=== PATIENT | female | born 1980 | race Caucasian/White ===

== ENCOUNTER 2017-07-29 15:17 | Emergency (ER) | payer BC ==
[2017-07-29] MEDS ORDERED: ONDANSETRON 4 MG/2 ML VIAL ONE (17:09)
[2017-07-29] MEDS ORDERED: NA CHLORIDE 0.9% 1,000 ML ONE (17:09)
[2017-07-29] MEDS ORDERED: KETOROLAC 30 MG/ML INJ ONE (17:09)
[2017-07-29 17:14] LABS: Absolute Lymphocytes (CBC) 2.3 K/uL (0.7-4.9); Absolute Monocytes 0.5 K/uL (0.1-1.3); Absolute Neutrophil 4.1 K/uL (1.8-8.0); Basophils % 0.3 % (0-1.3); Eosinophils % 1.2 % (0-4.4); Hematocrit 40.4 % (36.0-45.0); Lymphocytes % 32.7 % (15.3-44.8); MCH 29.8 pg (27.0-35.0); MCV 87.6 fL (80-100); MPV 7.8 fL (7.6-11.3); Monocytes % 7.3 % (3.3-12.3); RBC Red Blood Cell Count 4.61 M/uL (3.86-4.86)
[2017-07-29 17:28] LABS: Bicarbonate 26 mEq/L (21-31); Glucose Level 96 mg/dL (65-120); Lipase 19 U/L (22-51); Potassium 3.6 mEq/L (3.6-5.0); Sodium Level 137 mEq/L (135-145)
[2017-07-29 17:35] LABS: ALT/SGPT 21 IU/L (10-60); AST/SGOT 20 IU/L (10-42); Albumin 4.1 g/dL (3.2-5.5); Alkaline Phosphatase 67 IU/L (42-121); Amylase Level 34 U/L (28-100); BUN Blood Urea Nitrogen 11 mg/dL (6-20); Bilirubin Direct 0.1 mg/dL (0-0.2); Bilirubin Total 0.3 mg/dL (0.3-1.2); Protein, Total 7.3 g/dL (6.0-8.3)
[2017-07-29 17:53] LABS: Urine Blood NEGATIVE (NEG); Urine Glucose NEGATIVE (NEG); Urine Protein NEGATIVE (NEG); Urine Specific Gravity 1.025 (1.005-1.030); Urine pH 5.5 (5.0-7.0)
--- NOTE | 2017-07-29 18:32 | RAD REPORT ---
EXAM DESCRIPTION: CTAbdomen Pelvis W Contrast - 07/29/2017 6:05 pm CLINICAL HISTORY: Abdominal pain. COMPARISON: 10/14/2010 TECHNIQUE: Biphasic CT imaging of the abdomen and pelvis was performed with 100 ml non-ionic IV cont rast. All CT scans are performed using dose optimization technique as appropriate and may include automated exposure control or mA/KV adjustment according to patient size. FINDINGS: The lung bases are clear. The liver, spleen, pancreas, adrenal glands and kidneys are within normal limits. 22 mm right renal c yst noted. No bowel obstruction, free air, free fluid or abscess. Scattered diverticulosis coli. The appendix is normal. No evidence of significant lymphadenopathy. No suspicious bony findings. 3 cm right ovarian follicle noted. IMPRESSION: No acute intra-abdominal or pelvic finding.
--- NOTE | 2017-07-29 18:46 | EDPHYS ---
Physician Documentation [facility] Name: Michel Pool Age: 37 yrs Sex: Female : 1980 Arrival Date: 07/29/2017 Time: 15:24 Bed 14 Private MD: None, None ED Physician Ruel Littlejohn HPI: 07/29 17:13 This 37 yrs old Female presents to ER via Ambulatory with complaints of kb Abdominal Pain, Vomiting/Diarrhea. 17:13 The patient presents with abdominal pain in the upper abdomen. Onset: The kb symptoms/episode began/occurred 6 day(s) ago. The symptoms do not radiate. Associated signs and symptoms: Pertinent positives: nausea, vomiting, and diarrhea, Pertinent negatives: anorexia, blood in stools, chest pain, constipation, dysuria, fever, headache, hematuria, palpitations, shortness of breath, vaginal discharge, vomiting blood. The symptoms are described as constant. Modifying factors: The symptoms are alleviated by nothing, the symptoms are aggravated by nothing. Severity of pain: At its worst the pain was moderate in the emergency department the pain is unchanged. The patient has not experienced similar symptoms in the past. The patient has not recently seen a physician. 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 - Social history:: Smoking status: Patient/guardian denies using tobacco, Patient uses alcohol, but reports only rare drinking. Patient/guardian denies using street drugs. ROS: 17:12 ENT: Negative for injury, pain, and discharge, Neck: Negative for injury, pain, and kb swelling, Cardiovascular: Negative for chest pain, palpitations, and edema, Respiratory: Negative for shortness of breath, cough, wheezing, and pleuritic chest pain, Back: Negative for injury and pain, : Negative for injury, bleeding, discharge, and swelling, MS/Extremity: Negative for injury and deformity, Skin: Negative for injury, rash, and discoloration, Neuro: Negative for headache, weakness, numbness, tingling, and seizure. 17:12 Constitutional: Positive for fever, malaise, Negative for body aches, chills, fatigue, poor PO intake, weight loss. 17:12 Abdomen/GI: Positive for abdominal pain, nausea, vomiting, and diarrhea, Negative for constipation, abdominal cramps, abdominal distension, anorexia. Exam: 17:12 Constitutional: This is a well developed, well nourished patient who is awake, alert, kb and in no acute distress. Head/Face: Normocephalic, atraumatic. Chest/axilla: Normal chest wall appearance and motion. Nontender with no deformity. No lesions are appreciated. Cardiovascular: Regular rate and rhythm with a normal S1 and S2. No gallops, murmurs, or rubs. Normal PMI, no JVD. No pulse deficits. Respiratory: Lungs have equal breath sounds bilaterally, clear to auscultation and percussion. No rales, rhonchi or wheezes noted. No increased work of breathing, no retractions or nasal flaring. Back: No spinal tenderness. No costovertebral tenderness. Full range of motion. Skin: Warm, dry with normal turgor. Normal color with no rashes, no lesions, and no evidence of cellulitis. MS/ Extremity: Pulses equal, no cyanosis. Neurovascular intact. Full, normal range of motion. Neuro: Awake and alert, GCS 15, oriented to person, place, time, and situation. Cranial nerves II-XII grossly intact. Motor strength 5/5 in all extremities. Sensory grossly intact. Cerebellar exam normal. Normal gait. 17:12 Abdomen/GI: Inspection: abdomen appears normal, Bowel sounds: normal, in all quadrants, Palpation: soft, in all quadrants, mild abdominal tenderness, in the right upper quadrant and left upper quadrant. Vital Signs: 15:43 BP 102 / 70; Pulse 85; Resp 16; Temp 98.4(O); Pulse Ox 100% on R/A; Weight 102.06 kg; ch Height 5 ft. (152.40 cm); Pain 8/10; 17:26 BP 101 / 38; Pulse 70; Resp 15; Pulse Ox 96% on R/A; mh5 18:25 BP 110 / 62; Pulse 68; Resp 18; Pulse Ox 99% on R/A; Pain 7/10; rb1 19:20 BP 112 / 58; Pulse 69; Resp 18; Pulse Ox 100% on R/A; rb1 15:43 Body Mass Index 43.94 (102.06 kg, 152.40 cm) ch MDM: 16:16 Patient medically screened. kb 17:12 Data reviewed: vital signs, nurses notes. Data interpreted: Pulse oximetry: on room air kb is 100 %. Interpretation: normal. 18:36 Counseling: I had a detailed discussion with the patient and/or guardian regarding: the kb historical points, exam findings, and any diagnostic results supporting the discharge/admit diagnosis, lab results, radiology results, the need for outpatient follow up, a family practitioner, to return to the emergency department if symptoms worsen or persist or if there are any questions or concerns that arise at home. 07/29 16:16 Order name: Amylase, Serum; Complete Time: 17:36 kb 07/29 16:16 Order name: Basic Metabolic Panel; Complete Time: 17:36 kb 07/29 16:16 Order name: CBC with Diff; Complete Time: 17:15 kb 07/29 16:16 Order name: Hepatic Function; Complete Time: 17:36 kb 07/29 16:16 Order name: Lipase; Complete Time: 17:36 kb 07/29 16:43 Order name: Urine Dipstick--Ancillary (enter results); Complete Time: 17:54 ag 07/29 16:16 Order name: Urine Test (obtain specimen); Complete Time: 17:56 kb 07/29 16:43 Order name: Urine --Ancillary (enter results); Complete Time: 17:54 ag 07/29 17:37 Order name: CT Abd/Pelvis - W/Contrast; Complete Time: 18:34 kb 07/29 16:16 Order name: IV Saline Lock; Complete Time: 17:56 kb 07/29 16:16 Order name: Labs collected and sent; Complete Time: 17:56 kb 07/29 16:16 Order name: Urine Dipstick-Ancillary (obtain specimen); Complete Time: 17:56 kb Administered Medications: 07:05 Drug: TORadol 30 mg Route: IVP; Site: right antecubital; rb1 17:30 Follow up: Response: No adverse reaction; Pain is decreased rb1 17:05 Drug: NS 0.9% 1000 ml Route: IV; Rate: 1000 ml; Site: right antecubital; rb1 18:09 Follow up: IV Status: Completed infusion rb1 17:05 Drug: Zofran 4 mg Route: IVP; Site: right antecubital; rb1 17:30 Follow up: Response: No adverse reaction; Nausea is decreased rb1 19:05 Drug: ProTONIX 40 mg Route: IVP; Site: right antecubital; rb1 19:20 Follow up: Response: No adverse reaction rb1 19:05 Drug: Bentyl 20 mg Route: PO; rb1 19:20 Follow up: Response: No adverse reaction rb1 Disposition: 07/30 06:42 Co-signature as Attending Physician, Ruel Littlejohn MD I agree with the assessment and fabiola plan of care. Disposition: 07/29/17 18:46 Discharged to Home. Impression: Diarrhea, unspecified, Upper abdominal pain, unspecified. - Condition is Stable. - Discharge Instructions: Food Choices to Help Relieve Diarrhea, Adult, Abdominal Pain, Adult, [id number], Diarrhea, Uvil-pe-Ozyn. - Prescriptions for Bentyl 20 mg Oral Tablet - take 1 tablet by ORAL route every 6 hours As needed; 20 tablet. Zofran 4 mg Oral Tablet - take 1 tablet by ORAL route every 6 hours As needed; 20 tablet. - Medication Reconciliation Form, Thank You Letter, Antibiotic Education, Prescription Opioid Use, Work release form form. - Follow up: Emergency Department; When: As needed; Reason: Worsening of condition. Follow up: Private Physician; When: 2 - 3 days; Reason: Recheck today's complaints, Continuance of care, Re-evaluation by your physician. Signatures: Dispatcher [employer] EDWA Suni Martins, TUNGC ROLF-Fabiola Maki, RN RN Ruel Vargas MD MD cha Barber, Rebecca, RN RN rb1
--- NOTE | 2017-07-29 18:46 | ER ---
Nurse's Notes [facility] Name: Michel Pool Age: 37 yrs Sex: Female : 1980 Arrival Date: 07/29/2017 Time: 15:24 Bed 14 Private MD: None, None Diagnosis: Diarrhea, unspecified;Upper abdominal pain, unspecified Presentation: 07/29 15:41 Presenting complaint: Patient states: vomiting nausea diarreha for the past 6 days. it ch wont go away. Transition of care: patient was not received from another setting of care. Onset of symptoms was July 23, 2017. Initial Sepsis Screen: Does the patient meet any 2 criteria? No. Patient's initial sepsis screen is negative. Does the patient have a suspected source of infection? No. Patient's initial sepsis screen is negative. Care prior to arrival: None. 15:41 Method Of Arrival: Ambulatory 15:41 Acuity: IVAN 3 ch Triage Assessment: 15:43 General: Appears in no apparent distress. comfortable, Behavior is calm, cooperative, ch appropriate for age. Pain: Complains of pain in right upper quadrant and left upper quadrant Pain currently is 9 out of 10 on a pain scale. GI: Abdomen is obese. 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 - Social history:: Smoking status: Patient/guardian denies using tobacco, Patient uses alcohol, but reports only rare drinking. Patient/guardian denies using street drugs. Screenin:15 Abuse screen: Denies threats or abuse. Nutritional screening: No deficits noted. rb1 Tuberculosis screening: No symptoms or risk factors identified. Fall Risk None identified. Assessment: 16:15 General: Appears in no apparent distress. comfortable, obese, Behavior is calm, rb1 cooperative. Pain: Complains of pain in left upper quadrant and right upper quadrant Pain currently is 9 out of 10 on a pain scale. Neuro: Level of Consciousness is awake, alert, obeys commands, Oriented to person, place, time, situation. Cardiovascular: Capillary refill < 3 seconds is brisk in bilateral fingers. Respiratory: Airway is patent Respiratory effort is even, unlabored, Respiratory pattern is regular, symmetrical. GI: Bowel sounds present X 4 quads. Abd is soft Abdomen is tender to palpation in right upper quadrant and left upper quadrant. : No signs and/or symptoms were reported regarding the genitourinary system. Derm: Skin is pink, warm \T\ dry. Musculoskeletal: Range of motion: intact in all extremities. 17:11 Reassessment: Patient appears in no apparent distress at this time. No changes from rb1 previously documented assessment. friend at bedside. 18:08 Reassessment: Patient appears in no apparent distress at this time. Patient and/or rb1 family updated on plan of care and expected duration. Pain level reassessed. Patient is alert, oriented x 3, equal unlabored respirations, skin warm/dry/pink. 19:00 Reassessment: Patient appears in no apparent distress at this time. Patient and/or rb1 family updated on plan of care and expected duration. Pain level reassessed. Patient is alert, oriented x 3, equal unlabored respirations, skin warm/dry/pink. Vital Signs: 15:43 BP 102 / 70; Pulse 85; Resp 16; Temp 98.4(O); Pulse Ox 100% on R/A; Weight 102.06 kg; Height 5 ft. (152.40 cm); Pain 8/10; 17:26 BP 101 / 38; Pulse 70; Resp 15; Pulse Ox 96% on R/A; mh5 18:25 BP 110 / 62; Pulse 68; Resp 18; Pulse Ox 99% on R/A; Pain 7/10; rb1 19:20 BP 112 / 58; Pulse 69; Resp 18; Pulse Ox 100% on R/A; rb1 15:43 Body Mass Index 43.94 (102.06 kg, 152.40 cm) ED Course: 15:24 Patient arrived in ED. mr 15:24 None, None is Private Physician. mr 15:41 Triage completed. 15:43 Arm band placed on left wrist. Patient placed in an exam room, on a stretcher. 15:44 Suni Martins FNP-C is [facility]. kb 15:44 Ruel Littlejohn MD is Attending Physician. kb 16:15 Patient has correct armband on for positive identification. Placed in gown. Bed in low rb1 position. Call light in reach. Side rails up X 1. Pulse ox on. NIBP on. 16:48 Stephany Tapia, RN is Primary Nurse. rb1 17:00 Inserted saline lock: 22 gauge in right antecubital area, using aseptic technique. rb1 Blood collected. 18:05 CT Abd/Pelvis - W/Contrast In Process Unspecified. EDMS 19:20 No provider procedures requiring assistance completed. IV discontinued, intact, rb1 bleeding controlled, No redness/swelling at site. Pressure dressing applied. Administered Medications: 07:05 Drug: TORadol 30 mg Route: IVP; Site: right antecubital; rb1 17:30 Follow up: Response: No adverse reaction; Pain is decreased rb1 17:05 Drug: NS 0.9% 1000 ml Route: IV; Rate: 1000 ml; Site: right antecubital; rb1 18:09 Follow up: IV Status: Completed infusion rb1 17:05 Drug: Zofran 4 mg Route: IVP; Site: right antecubital; rb1 17:30 Follow up: Response: No adverse reaction; Nausea is decreased rb1 19:05 Drug: ProTONIX 40 mg Route: IVP; Site: right antecubital; rb1 19:20 Follow up: Response: No adverse reaction rb1 19:05 Drug: Bentyl 20 mg Route: PO; rb1 19:20 Follow up: Response: No adverse reaction rb1 Outcome: 18:46 Discharge ordered by . kb 19:20 Discharged to home ambulatory, with friend. rb1 19:20 Condition: stable 19:20 Discharge instructions given to patient, Instructed on discharge instructions, follow up and referral plans. medication usage, Demonstrated understanding of instructions, follow-up care, medications, Prescriptions given X 2. 19:20 Patient left the ED. rb1 Signatures: Dispatcher [employer] EDMS Suni Martins FNP-C FNP-Fabiola Maki RN RN ch Rivera, Maria mr Barber, Rebecca, RN RN [facility] Shruti Cyr [facility] Corrections: (The following items were deleted from the chart) 19:33 18:25 BP 110 / 62; Pulse 68bpm; Resp 18bpm; Pulse Ox 99% RA; rb1 rb1 19:36 19:35 Patient left the ED. rb1 rb1
[2017-07-29] MEDS ORDERED: DICYCLOMINE HCL 10 MG CAP ONE (19:09)
[2017-07-29] MEDS ORDERED: PANTOPRAZOLE 40 MG INJ ONE (19:10)
== END 2017-07-29 19:35 | disposition home or self-care (01) ==
LOC: ER 15:17
DX: R19.7 Diarrhea, unspecified (principal); K21.9 Gastro-esophageal reflux disease without esophagitis; Z88.8 Allergy status to other drugs, medicaments and biological substances
CPT/HCPCS: 36415; 74177; 80048; 80076; 81003; 81025; 82150; 83690; 85025; 96361; 96374; 96375; 99284; C9113; J2405; J7030; Q9967

== ENCOUNTER 2024-01-08 07:26 | Day surgery (SDC) | payer BC ==
[2024-01-07 15:44] LABS: Sqamous Epithelial <5 /HPF (None Seen); Urine Bacteria None Seen /HPF (<20); Urine Bilirubin NEGATIVE (Negative); Urine Blood Negative (Negative); Urine Clarity Clear (Clear); Urine Color Yellow (Yellow); Urine Crystals Unidentified Few /HPF (None Seen); Urine Culture Reflex Order NOT NEEDED; Urine Glucose NEGATIVE (Negative); Urine Ketones NEGATIVE (Negative); Urine Microscopic Reflex YN ORDER UMIC; Urine Mucus 4+ /HPF (None Seen); Urine Nitrite NEGATIVE (Negative); Urine Protein TRACE (Negative); Urine RBC <5 /HPF (None Seen); Urine Urobilinogen Normal (Normal); Urine WBC <5 /HPF (<5)
[2024-01-07 15:57] LABS: Absolute Eosinophils 0.1 K/uL (0-0.5); Absolute Lymphocytes (CBC) 1.6 K/uL (0.7-4.9); Absolute Monocytes 0.3 K/uL (0.1-1.3); Absolute Neutrophil 4.5 K/uL (1.8-8.0); Basophils % 0.2 % (0-1.3); Eosinophils % 1.3 % (0-4.4); Hematocrit 32.5 % (36.0-45.0); Hemoglobin 10.9 g/dL (12.0-15.0); Lymphocytes % 24.9 % (15.3-44.8); MCHC 33.6 g/dL (32.0-36.0); MCV 80.4 fL (80-100); Monocytes % 4.2 % (3.3-12.3); Neutrophils % 69.4 % (41.7-73.7); Platelets 390 thou/uL (152-406); RBC Red Blood Cell Count 4.04 M/uL (3.86-4.86); Red Cell Distribution Width 16.1 % (12.1-15.2)
[2024-01-08] MEDS ORDERED: CEFAZOLIN SODIUM 1 GM/VIAL ONE (07:37)
[2024-01-08] MEDS: Ringers Lactate 1,000 ML IV ONE (07:45)
[2024-01-08] MEDS ORDERED: ONDANSETRON 4 MG/2 ML VIAL ONE (08:22)
[2024-01-08] MEDS ORDERED: ROCURONIUM 50 MG/5 ML VIAL IV ONE (08:22)
[2024-01-08] MEDS ORDERED: LIDOCAINE 1% MPF 5 ML VIAL ONE (08:22)
[2024-01-08] MEDS ORDERED: MIDAZOLAM HCL 2 MG/2 ML INJ ONE (08:22)
[2024-01-08] MEDS ORDERED: KETAMINE HCL IN 0.9 % NACL 50 MG/5 ML SYRINGE IV ONE (08:22)
[2024-01-08] MEDS ORDERED: dexAMETHasone 10 MG/ML VIAL ONE (08:22)
[2024-01-08] MEDS ORDERED: propofoL 200 MG/20 ML VIAL IV ONE (08:22)
[2024-01-08] MEDS ORDERED: FENTANYL CITR 250 MCG/5 ML ONE (08:22)
[2024-01-08] MEDS ORDERED: EPHEDRINE SULF 50 MG/ML VIAL ONE (09:09)
[2024-01-08] MEDS: CEFAZOLIN SODIUM 2 GM/VIAL ONE (09:20)
[2024-01-08] MEDS: BUPIVACAINE 0.25% PF 30 ML VIAL ONE (09:34)
[2024-01-08] MEDS ORDERED: Ringers Lactate 1,000 ML IV ONE (09:58)
[2024-01-08] MEDS ORDERED: GLYCOPYRROLATE 0.2 MG/ML SYR ONE (10:04)
[2024-01-08] MEDS ORDERED: KETOROLAC 30 MG/ML INJ ONE (11:26)
[2024-01-08] MEDS: HYDROMORPHONE HCL 1 MG/ML INJ ONE (12:23)
[2024-01-08] MEDS: MEPERIDINE HCL 25 MG/ML SYR ONE (12:34)
[2024-01-08 13:15] VITALS: BP 108/52; TEMP 97.8
[2024-01-08] MEDS: HYDROCODONE/APAP 5/325 MG TAB ONE (13:27)
[2024-01-08 14:30] VITALS: O2SAT 95
--- NOTE | 2024-01-08 22:39 | OP ---
Date of Procedure: 01/08/2024 Surgeon: Acacia Elizabeth MD Television Writer: Shantel Grande. Preoperative Diagnoses: Menorrhagia and pelvic pain. Postoperative Diagnoses: AUB-L/pelvic pain/right ovarian cystic mass. Procedures Performed: Total laparoscopic hysterectomy, bilateral salpingectomy, right oophorectomy, pelvic washings, and vaginal morcellation. Anesthesia: General endotracheal. Estimated Blood Loss: 50. Specimens: Uterus, bilateral tubes, right ovary, and pelvic washings. Findings: Fibroid seen at the fundus, which made the retrieval of the specimen vaginally difficult a nd needed vaginal morcellation. Then, a right ovarian cystic mass with slightly cystic ovarian capsu le was noted and it was encompassing the entire ovary. Therefore, it was deemed prudent to remove th e ovary without rupturing the cyst. Pelvic washings were performed as a part of this procedure. Indications: The patient is a 43-year-old female presenting with heavy menstrual bleeding. She is a 3, para 3. Also, with pelvic pain. She underwent a transvaginal ultrasound, which showed a n enlarged uterus. Then, endometrial sampling showed no atypia or malignancy, right ovarian cystic m ass. She was then given all the different options of conservative management with medical treatment. Then, sampling followed by or an ablation due to her pelvic pain and laparoscopy with en dometriosis. Endometriosis excision if found was also discussed. The patient wanted to proceed with definitive treatment, which included a hysterectomy, possible endo treatment if found along with carie mectomy. The other option was to do a hysterectomy with removal of both tubes. Endometriosis was se en. After she was consented for all these procedures and as deemed necessary during the procedure, s he was brought to the hospital. Description Of Procedure: We gave 3 g of Ancef. She was taken back to the OR after re-consenting in the preoperative area with her partner by her side. She was placed in a supine fashion on the operating table, general anesthesia was given, placed in do rsal lithotomy position using Cesar stirrups. Abdomen was prepped with ChloraPrep; vulva, vagina, an d perineum with Betadine. She was draped in a sterile fashion. Arms were tucked by the side. SCDs were started. Positioning was checked. Time-out was done and procedure started. Speculum was placed to expose the cervix. Anterior lip was grasped with 2 Allis clamps. Cervix was dilated and then a medium cup uterine manipulator was introduced and fixed in place. The Gomez was u sed to drain the bladder and attached to a drainage bag. This area was then draped. 1 cm infraumbilical incision was made with a scalpel using the open laparoscopy technique through the old scar. Fascia was incised, tagged with 0 Vicryl sutures. Peritoneum was entered sharply. Hasso n was introduced after adequate insufflation. Site of entry was checked and was unremarkable. Upper abdominal surfaces were mostly unremarkable excepting the omental adhesions to the anterior abdomina l wall just above the umbilicus from her past gallbladder surgery most likely. She was then placed i n Trendelenburg position and pelvic survey was performed. No peritoneal changes consistent with endo metriosis or any other suspicious implants. The right ovary was with a cyst encompassing the entire ovary and slightly cystic ovarian surface epithelium. The left ovary was completely normal and unrem arkable. The plan was to do pelvic washings, remove the right ovary along with the uterus and the tu bes. The patient was then placed. The pelvic washings were then performed. Then, a 10 suprapubic to righ t and left 1 each 5 ports were placed in the lower quadrants after injecting Marcaine at the fascia a nd skin. The utero-ovarian ligament was taken down. The mesosalpinx was taken down to separate the tube. Rou nd ligament was then taken down and peritoneal flaps opened up for anterior and posterior leaves of t broad ligament. The broad ligament was taken down, skeletonizing the vessels, and the ureter was identified in the pelvic sidewall and dissection was performed to visualize it to the ureteric tunnel and this was dissected laterally giving the space towards the vessels. Anteriorly, the peritoneum o ff the bladder was raised. The bladder was dissected inferiorly exposing the anterior vaginal wall a nd clearing up the wall to visualize the vessels well. Then, on the opposite side, similar dissectio n was performed where the utero-ovarian ligament was isolated by opening the broad ligament or mesosa lpinx superior to the round ligament cephalad. Then, the peritoneum between the IP ligament and the ureter was opened up and this was expanded to isolate the ovarian pedicle. Then, the peritoneum on t he broad ligament below the round ligament was opened up and then round ligament was taken down witho ut a problem. The posterior broad ligament dissected to the level of the cup and anterior broad liga ment joined to finish the bladder flap. This was dissected inferiorly. The ureter was dissected lat erally. The vessels were exposed and they were skeletonized. Here, the vessels were taken down with the help of the bipolar cautery for cauterization and then with the LigaSure to divide them. Then, cardinal ligaments were also dissected, cauterized, and divided. On the right side, similar dissecti on was performed. On the left side, cauterizing the vessels taken down the cardinal ligament after t hat with the LigaSure. Then, circumferential colpotomy was performed with a monopolar hook blade and then specimen taken back posteriorly to finish the colpotomy. It was difficult to extract the specimen through the vagina and therefore vaginal morcellation had to be performed. The Strong speculum both on the anterior wall and posterior wall were applied. ___ clamps were used to hold the cervix and then later the uterine specimen gradually morcellating it within the vaginal canal and retrieving the entire specimen with having to cut the whole thing. Thi s came along with right ovarian cyst and tumor. This was handed off for permanent pathology. A vagi nal occluder was placed. After irrigating the pelvic cavity and after hemostasis was ensured, then a simple 0 PDS sutures were placed at both angles and 3 [id number] in the middle including the entire fascial portion of a nterior and posterior berger at the distal uterosacral ligaments as well, but this was not a uterosacr al suspension. After the cuff was closed and was completely hemostatic, thorough irrigation suction was performed to see all the beds of dissection and the pedicles. They were all hemostatic. The patient was leveled out, taken out of Trendelenburg. All ports were removed under direct vision. Then, fascial port at the umbilicus was taken down after the gas was desufflated. Fascia at the umbilicus was closed with the tag 0 Vicryl sutures tied to each other and all skin incisions closed with the help of interrupt ed 4-0 Monocryl sutures. The vaginal occluder and the Gomez were removed. Instrument, needle, and s ponge counts were done and were correct at the end of the case. The patient tolerated the procedure well. She was recovered from anesthesia and taken to PACU in stable condition. Her partner was debr iefed about her findings. She will follow up in 1 week and 4 weeks for postop and we will discuss th e findings with the patient. VIKI Voice ID: [id number] Report ID: [id number]
== END 2024-01-08 14:12 | disposition home or self-care (01) ==
LOC: OR 07:26
PROVIDERS: ATTEND Obstetrics & Gynecology
PROC: 0UT74ZZ Resection of Bilateral Fallopian Tubes, Percutaneous Endoscopic Approach (ICD-10-PCS; 2024-01-08)
PROC: 0UT04ZZ Resection of Right Ovary, Percutaneous Endoscopic Approach (ICD-10-PCS; 2024-01-08)
PROC: 0UT94ZZ Resection of Uterus, Percutaneous Endoscopic Approach (ICD-10-PCS; principal; 2024-01-08 08:30)
DX: N92.0 Excessive and frequent menstruation with regular cycle (principal); R10.2 Pelvic and perineal pain; N88.8 Other specified noninflammatory disorders of cervix uteri; D25.9 Leiomyoma of uterus, unspecified; N83.201 Unspecified ovarian cyst, right side
CPT/HCPCS: 85025; 81001; 36415; 86900; 88108; 86850; 81025; 86901; 88305; 88307; 58150; J2704; J2001; J2250; J3010; J1100; J2175; J1170; J2405; J7120 ×2; J0690